=== PATIENT | male | born 1955 | race Caucasian/White ===

== ENCOUNTER 2019-09-02 11:00 | Outpatient (RCR) | payer MEDICARE, MEDICAID, SELFPAY ==
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
--- NOTE | 2019-09-02 16:18 | STOPEVAL ---
SPEECH THERAPY DISCHARGE: Thank you for referring Zafar Snowden to [facility]. Pt completed only 4 speech therapy sessions when it became apparent that pt may require assist out of the scope of speech pathology. See report below. No further speech therapy is warranted at this time. Please review, sign, date and return this plan of care KOURTNEY. I agree with and certify that the following plan of care is medically necessary. Referring Physician Date Attending Provider: PHYSICIAN NOT ON STAFF *ST Outpatient Discharge Start: 08/14/19 10:21 Freq: Status: Active Protocol: Document 09/02/19 12:37 BECHERERT (Rec: 09/02/19 12:40 BECHERERT [email or web address]) Therapy Assessment Status Assessment Status Assessment Status Discharge Outpatient Past Medical History Past Medical History Source of Past Medical History Patient Neurological History Hx Migraine Yes Respiratory History Hx Respiratory Disorders No Significant History Gastrointestinal History Hx Gastrointestinal Disorders No Significant History Genitourinary History Hx Genitourinary Disorders No Significant History Musculoskeletal History Hx Gout Yes Hematological History Hx Hematological Disorders No Significant History Endocrine History Hx Endocrine Disorders No Significant History Integumentary History Hx Skin Disorders No Significant History Reproductive History Hx Reproductive Disorders No Significant History Psychosocial History Hx Psychiatric Disorders No Significant History Pain History History of Any Previous or Ongoing No Significant History Instance of Pain Anesthesia History Hx Anesthesia Reactions No Significant History Pain Assessment Timing of Pain Assessment Timing of Pain Assessment Pre-Treatment Self Report Self Report Pain Level 0 Pain Scale Pain Scale Used Numeric (1 - 10) Pain Score Pain Score 0: Self Report Cognitive Evaluation Attention Assessment divided attention Overall Attention Ability WFL Selective Attention Overall Attention Ability WFL mental flexibility Overall Attention Ability WFL Sustained Attention Overall Attention Ability WFL Alternating Attention Overall Attention Ability WFL Orientation/Memory Assessment Immediate Memory 100 Query Text:% Accuracy Recent Memory 100 Query Text:% Accuracy Remote Memory 90 Query Text:% Accuracy Temporal Orientation 100 Query Text:% Accuracy Spatial/Environmental Orientation 100 Query Text:% Accuracy Overall Orientation and Memory WFL Problem Solving Overall Problem Solving Skills No Impairment Thought Organization Overall Thought Or
== END 2019-09-03 09:22 | disposition home or self-care (01) ==
LOC: ANHST 11:00
DX: F80.89 Other developmental disorders of speech and language (principal); R41.3 Other amnesia; G31.84 Mild cognitive impairment of uncertain or unknown etiology; F32.9 Major depressive disorder, single episode, unspecified; F41.8 Other specified anxiety disorders
CPT/HCPCS: 96125; 97129; 97130